=== PATIENT | female | born 1995 | race Caucasian/White ===

== ENCOUNTER 2020-06-11 09:28 | Inpatient (IN) ==
--- OUTSIDE RECORDS SUMMARY | 2020-06-11 11:07 | External Medical Summary | Continuity of Care Document ---
:1995 Author Name Sofi Schwarz, Provider Address Unavailable Unavailable , Care Team Providers Name Role Phone Rosendo Trevino M.D. 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 2 8 Tablet Pack Refills: 0 lamoTRIgine 25 MG Oral Tablet; Take 1 tablet daily Refills: 0 Depo-Provera 150 MG/ML Intramuscular Suspension; USE DIRE CTED. Refills: 0 Iron 325 (65 Fe) MG Oral Tablet; TAKE 1 TABLET TWICE DAILY. Refills: 0 Calcium + D TABS; Take 1 tablet twice daily Refills: 0 Procedures Procedures not documented Immunizations Immunizations not documented Family History Mother Family history of Adopted child Status: Active Family history unknown (V49.89) (Z78.9) Status: Active Father Family history of Adopted child Status: Active Family history unknown (V49.89) (Z78.9) Status: Active Plan of Treatment Planned Observations Planned Goals not documented Results No Known Results Results not documented Encounters Appointment; Rosendo Trevino M.D. 14-Oct-2018 9:30 Encounter Diagnosis: Problem not documented
[2020-06-11] MEDS ORDERED: OXYTOCIN 30 UNITS/500 ML BAG IV PRN ×3 (11:51→19:15)
--- NOTE | 2020-06-11 12:21 | Obstetrical Progress Note ---
Date of Service June 11, 2020 Assessment & Plan Admission and Anticipated Discharge Date Admission Date: June 11, 2020 Physical Exam Physical Exam: Admit Note 25 F P1001 at 41 weeks admitted for induction of labor for post-dates. Covid is negative. GBS is negative. FHT Cat 1. Cervix is 4/70/- 2/vertex/intact/anterior/soft. EFW 7 lbs. Anticipate normal delivery. Results & Data ([facility]) Vital Signs (Past 12 Hours) Vital Signs Temp Pulse Resp BP 06/11/20 11:18 37.1 C 68 20 127/76
[2020-06-11 12:22] LABS: Hematocrit (blood only) 32.5 % (37-47); Hemoglobin 10.9 g/dL (12.0-16.0); Mean Corpuscular Hemoglobin 31.6 pg (25-34); Mean Corpuscular Volume 94.2 fL (80-100); Mean Platelet Volume 11.7 fL (7.4-10.4); Platelet Count 226 K/uL (130-400); RDW Coefficient of Variation 14.1 % (11.5-14.5); RDW Standard Deviation 48.7 fL (36.4-46.3); Red Blood Count 3.45 M/uL (4.2-5.4); White Blood Count 8.66 K/uL (4.8-10.8)
[2020-06-11 12:35] LABS: Mean Corpuscular Hgb Conc 33.5 g/dL (32-36)
[2020-06-11] MEDS: LACTATED RINGER'S 1,000 ML IV PRN ×2 (13:42→17:27)
--- NOTE | 2020-06-11 15:31 | Obstetrical Progress Note ---
Date of Service June 11, 2020 Assessment & Plan Admission and Anticipated Discharge Date Admission Date: June 11, 2020 Physical Exam Genitourinary: Manual OB Exam: + cervical dilation 5 cm, + cervical effacement 80%, + station -2 and + amniotic fluid clear OB Exam Monitor Tracing: + external FHT monitor used, + external uterine monitor used and + category I Results & Data ([facility]) Vital Signs (Past 12 Hours) Vital Signs Temp Pulse Resp BP 06/11/20 15:26 73 121/67 06/11/20 14:50 36.6 C 88 18 120/64 06/11/20 13:41 36.8 C 56 L 20 119/71 06/11/20 11:18 37.1 C 68 20 127/76
[2020-06-11] MEDS ORDERED: BUPIVACAINE 0.25% 30 ML VIAL ONE (16:54)
[2020-06-11] MEDS ORDERED: ePHEDrine sulfate 50 MG/ML AMP ONE (16:54)
[2020-06-11] MEDS ORDERED: fentaNYL 2MCG/ML ROPIV 1.25MG/ML 100 ML BAG EPI ONE (16:55)
[2020-06-11] MEDS ORDERED: fentaNYL citrate 100 MCG/2 ML VIAL ONE (16:55)
--- NOTE | 2020-06-11 17:57 | Anesthesiology Consultation ---
Date of Service June 11, 2020 Assessment & Plan (1) Encounter for pre-operative examination: Chart Review Chart Review: Acceptable Risk for Surgery Consults Requested none ASA ASA2 Proposed Anesthesia Anesthesia Type: Labor Epidural Risk / Benefits Reviewed With: PT / POA / Parent / Guardian, Accepts Plan and Informed Consent Obtained History Height/Weight Height: 5 ft 3 in Weight: 63.049 kg Allergies Allergy/AdvReac Type Severity Reaction Status Date / Time shellfish derived Allergy Anaphylaxis Verified 06/11/20 10:38 Medications Home Medications Medication Instructions Recorded Confirmed Last Taken ferrous sulfate 325 mg PO DAILY 06/11/20 06/11/20 06/10/20 20:00 prenat.vits,cliff,bke-jkbw-unagh 1 tab PO DAILY 06/11/20 06/11/20 06/10/20 20:00 [ Vitamin] Active Medications Generic Name Dose Route Start Last Admin Trade Name Freq PRN Reason Stop Dose Admin Lactated Ringer's 1,000 mls @ 125 mls/hr 06/11/20 11:51 06/11/20 17:27 Lr IV 06/13/20 11:50 999 mls/hr .Q8H PRN Administration L&D Protocol Protocol Oxytocin 30 units in 500 mls @ 12 mls/hr 06/11/20 12:17 06/11/20 17:00 Pitocin IV 06/13/20 12:16 0.72 units/hr .Q24H PRN 12 mls/hr Labor Induction/Augmentation Titration Protocol 0.72 UNITS/HR NPO Date Last Intake of Fluids: 06/11/20 Time Last Intake of Fluids: 17:30 Date Last Intake of Solids: 06/11/20 Time Last Intake of Solids: 06:00 Past Medical History Medical History Asthma (06/03/12) Migraine (11/27/12) Reflux (06/03/12) Exercise / Class Metabolic Activity II 4-5 Yardwork/Stairs/Walk up hill Past Surgical History Surgical History No significant past surgical history Past Anesthesia History No Family Hx of Anesthesia Complications History of PONV No Hx of Motion Sickness Social History Smoking Status: Never smoker Do You Dip or Chew Tobacco: No Hx Alcohol Use: No Hx Substance Use: No Review of Systems Patient denies history of abnormal bleeding or bleeding disorder. Patient denies active use of anticoagulants other than low dose aspirin. Patient denies numbness, tingling or weakness in lower extremities. Physical Exam Vital Signs Last Vital Signs Temp 36.6 C 06/11/20 14:50 Pulse 75 06/11/20 17:26 Resp 18 06/11/20 14:50 BP 123/74 06/11/20 17:10 Pulse Ox 100 06/11/20 17:26 Constitutional not obese (gravid uterus) ENMT Mouth: no TMJ abnormality and oral opening not small Thyromental Distance: > or= 3.5 Finger Breadths Mallampati Class: II Neck normal visual inspection; neck extension not limited Respiratory normal respiratory effort Auscultation: lungs clear to auscultation bilaterally Cardiovascular Rate/Rhythm: regular rate and regular rhythm Heart Sounds: no murmur Neurologic moves all extremities Motor/Sensory: no sensory deficit Psychiatric Orientation: alert and oriented x 3 Testing Laboratory Results 06/11/20 12:00
[2020-06-11] MEDS ORDERED: NALOXONE HCL 1 MG in SODIUM CHLORIDE 0.9% 1000ML 1,000 ML IV PRN (18:03)
[2020-06-11] MEDS ORDERED: DiphenhydrAMINE HCL 50 MG/ML VIAL IV PRN (18:03)
[2020-06-11] MEDS ORDERED: NALOXONE HCL 0.4 MG/1 ML VIAL/CARP IV PRN (18:03)
[2020-06-11] MEDS ORDERED: ONDANSETRON INJ 2 MG/ML 2 ML VIAL IV PRN (18:03)
[2020-06-11] MEDS ORDERED: fentaNYL 2MCG/ML ROPIV 1.25MG/ML 100 ML BAG EPI PRN (18:03)
[2020-06-11] MEDS ORDERED: ePHEDrine sulfate 50 MG/ML AMP IV PRN (18:03)
--- NOTE | 2020-06-11 18:38 | Delivery Summary ---
Vaginal Delivery Summary Date of Service June 11, 2020 Vaginal Delivery Summary Delivery Note live female over intact perineum with delayed cord clamping with Apgars 9/10 weight pending. Cord blood obtained followed by spontaneous delivery of intact placenta. Small first degree tear noted in vagina repaired with 3/0 Vicryl suture. EBL 200 ml. final sponge and instrument count are correct. Mom and baby stable.
[2020-06-11] MEDS ORDERED: HYDROCORTISONE ACETATE 25 MG SUPP PR PRN (19:15)
[2020-06-11] MEDS ORDERED: SUPERCREAM 0.870% 15 GM JAR EXT PRN (19:15)
[2020-06-11] MEDS ORDERED: bisacodyL 10 MG SUPP PR PRN (19:15)
[2020-06-11] MEDS ORDERED: DIPHTHERIA/TETANUS/PERTUSSIS 0.5 ML SYR/VIAL IM ONE (19:15)
[2020-06-11] MEDS ORDERED: IBUPROFEN 600 MG TAB PO PRN (19:15)
[2020-06-11] MEDS ORDERED: ACETAMINOPHEN 325 MG TAB PO PRN (19:15)
[2020-06-11] MEDS ORDERED: BENZOCAINE 20% AER SPR 82.5 GM CAN EXT PRN (19:15)
--- NOTE | 2020-06-11 20:21 | Anesthesia Procedure Note ---
Date of Service June 11, 2020 Anesthesia Post Epidural Note Vital Signs Vital Signs: Temp Pulse Resp BP Pulse Ox 36.8 C 76 18 109/59 L 100 06/11/20 20:00 06/11/20 20:07 06/11/20 20:00 06/11/20 20:07 06/11/20 18:51 Notes Mental Status: alert / awake / arousable and participated in evaluation Nausea / Vomiting: adequately controlled Pain: adequately controlled Airway Patency, RR, SpO2: stable & adequate BP & HR: stable & adequate Hydration State: stable & adequate Neuraxial Anesthesia: was administered and sensory block is resolving Anesthetic Complications: no major complications apparent and Pt Satisfied with anesthetic care Epidural: Removed without complications and With tip intact Notes: Epidural site clean, dry and intact. No signs of edema, erythema or bruising at insertion site. Pt instructed to request anesthesia if she has residual lower extremity numbness or if she develops lower extremity pain or weakness, back pain or headache.
[2020-06-11] MEDS: DOCUSATE SODIUM 100 MG CAP PO SCH (21:20)
[2020-06-12 05:55] LABS: Hematocrit (blood only) 30.5 % (37-47); Hemoglobin 10.2 g/dL (12.0-16.0); Mean Corpuscular Hemoglobin 31.2 pg (25-34); Mean Corpuscular Hgb Conc 33.4 g/dL (32-36); Mean Corpuscular Volume 93.3 fL (80-100); Mean Platelet Volume 11.8 fL (7.4-10.4); Platelet Count 219 K/uL (130-400); RDW Coefficient of Variation 14.1 % (11.5-14.5); RDW Standard Deviation 48.5 fL (36.4-46.3); Red Blood Count 3.27 M/uL (4.2-5.4); White Blood Count 12.28 K/uL (4.8-10.8)
[2020-06-12] MEDS ORDERED: PRENATAL VITAMIN 1 TAB PO SCH (08:00)
[2020-06-12] MEDS ORDERED: FERROUS SULFATE 325 MG TAB PO SCH (08:00)
[2020-06-12] MEDS: DOCUSATE SODIUM 100 MG CAP PO SCH (08:03)
[2020-06-12] MEDS ORDERED: NON-FORMULARY MEDICATION (Prenat.Vits,Cal,Min-Iron-Folic 1 TAB) PO SCH (09:00)
[2020-06-12] MEDS ORDERED: NON-FORMULARY MEDICATION (Ferrous Sulfate 325 MG) PO SCH (09:00)
--- NOTE | 2020-06-12 09:55 | Obstetrical Progress Note ---
Date of Service June 12, 2020 Assessment & Plan Admission and Anticipated Discharge Date Admission Date: June 11, 2020 Physical Exam Physical Exam: ambulating well no calf tenderness abdomen soft and non tender vaginal bleeding scant hgb 10.2 Results & Data ([facility]) Vital Signs (Past 12 Hours) Vital Signs Temp Pulse Resp BP BP Pulse Ox 06/12/20 07:54 36.9 C 57 L 18 123/76 98 06/12/20 04:35 36.8 C 57 L 17 109/68 97 06/11/20 23:05 36.8 C 56 L 16 114/68 96
[2020-06-12] MEDS ORDERED: bisacodyL 5 MG TABEC PO SCH (20:00)
== END 2020-06-12 18:15 | disposition home or self-care (01) | DRG 807 ==
LOC: 4S1 11:04 → 4S2 21:11

== ENCOUNTER 2022-01-19 08:50 | Inpatient (IN) ==
[2022-01-19] MEDS ORDERED: OXYTOCIN 30 UNITS/500ML NSS ONE (09:07)
[2022-01-19] MEDS ORDERED: OXYTOCIN 30 UNITS/500 ML BAG IV PRN ×2 (09:09→10:17)
[2022-01-19] MEDS ORDERED: LACTATED RINGER'S 1,000 ML IV PRN (09:09)
[2022-01-19 09:38] LABS: Hematocrit (blood only) 32.8 % (37-47); Hemoglobin 10.8 g/dL (12.0-16.0); Mean Corpuscular Hgb Conc 32.9 g/dL (32-36); Mean Corpuscular Volume 91.1 fL (80-100); Mean Platelet Volume 11.9 fL (7.4-10.4); Platelet Count 347 K/uL (130-400); RDW Coefficient of Variation 13.2 % (11.5-14.5); RDW Standard Deviation 43.9 fL (36.4-46.3); White Blood Count 20.53 K/uL (4.8-10.8)
[2022-01-19] MEDS ORDERED: MINERAL OIL 30 ML UDC ONE (09:52)
[2022-01-19] MEDS ORDERED: LIDOCAINE 1% LOCAL 20 ML VIAL ONE (09:58)
[2022-01-19] MEDS ORDERED: BENZOCAINE 20% AER SPR 82.5 GM CAN EXT PRN (10:17)
[2022-01-19] MEDS ORDERED: bisacodyL 10 MG SUPP PR PRN (10:17)
[2022-01-19] MEDS ORDERED: ACETAMINOPHEN 325 MG TAB PO PRN (10:17)
[2022-01-19] MEDS ORDERED: IBUPROFEN 600 MG TAB PO PRN (10:17)
[2022-01-19] MEDS ORDERED: oxyCODONE/ACETAMINOPHEN 5mg/325mg TAB PO PRN (10:17)
[2022-01-19] MEDS ORDERED: DIPHTHERIA/TETANUS/PERTUSSIS 0.5 ML SYR/VIAL IM ONE (10:17)
[2022-01-19] MEDS ORDERED: HYDROCORTISONE ACETATE 25 MG SUPP PR PRN (10:17)
[2022-01-19] MEDS ORDERED: MEASLES, MUMPS & RUBELLA VIRUS VIAL SQ ONE (10:17)
--- NOTE | 2022-01-19 10:29 | Delivery Summary ---
Vaginal Delivery Summary Date of Service January 19, 2022 Vaginal Delivery Summary Patient is a 26-year-old -0-0-2 female at 39.1 wks with EDC of 4/24 per her. She presented to labor and delivery with contractions and in active labor. She took care from [facility] in [place] and was planning to deliver in [facility]. She thought she did not have time to drive to [place] and she presented to here at [facility] which is closer to her home. We did not have her records. She denied any problems during this . She has a history of mild asthma and uses inhaler as needed. She denies any history of surgery other than dental implants. She takes iron only. She denies any allergies to medications. She denies any history of STDs including chlamydia gonorrhea herpes. She reported her contractions started around midnight and they got closer and more painful after 3 AM. She denied leakage of fluid or vaginal bleeding. She reported good movements. She denied any symptoms of COVID. When she arrived to labor and delivery her cervix was anterior lip , 9. 5 CM, 90% effaced, with large bulging bag and head was at 0 station. She has not had CBC yet. We discussed about epidural versus AROM and quick delivery. Declined epidural and one third AROM and delivery. The fluid was clear. Soon after that she reached fully dilatation and head was at +1 station. She pushed through few contractions and delivered the head in direct occiput posterior position. The shoulders were delivered with minimal traction and then the baby was handed off to the mother where mouth and nose were suctioned and cord was clamped x2 and cut at 1 minute delay. Baby is moving and crying at that point. The vagina and perineum were checked for lacerations. There was only a small first-degree laceration at the posterior fourchette. Rest of the vagina and labia were intact. It was infiltrated with 1% lidocaine for local anesthesia. And it was repaired with 3-0 Vicryl with [id number] stitches. Excellent hemostasis achieved. Then the placenta was found to be in the vagina, delivered spontaneously as intact and complete . The uterus was explored and found to be empty. The lower Segment was cleared of all clots and debris, EBL was 300 mL. The fundus was firm and the bleeding was minimal after. The mom and baby tolerated procedure well. The sponge needle instrument count was correct x2. There was a viable female infant Apgars 8/9 and weight is pending. Not complications happened and I was present during whole procedure.
[2022-01-19] MEDS: DOCUSATE SODIUM 100 MG CAP PO SCH (21:43)
[2022-01-20 06:54] LABS: Basophils # (auto) 0.04 K/uL (0-0.2); Basophils % (auto) 0.2 %; Eosinophils # (auto) 0.03 K/uL (0-0.5); Eosinophils % (auto) 0.2 %; Hematocrit (blood only) 27.9 % (37-47); Hemoglobin 9.2 g/dL (12.0-16.0); Immature Granulocytes % (auto) 0.6 %; Lymphocytes # (auto) 2.63 K/uL (1.2-3.4); Mean Corpuscular Hemoglobin 29.8 pg (25-34); Mean Corpuscular Volume 90.3 fL (80-100); Monocytes # (auto) 1.31 K/uL (0.11-0.59); Monocytes % (auto) 7.9 %; Neutrophils # (auto) 12.37 K/uL (1.4-6.5); Neutrophils % (auto) 75.1 %; Platelet Count 301 K/uL (130-400); RDW Coefficient of Variation 13.3 % (11.5-14.5); RDW Standard Deviation 43.6 fL (36.4-46.3); Red Blood Count 3.09 M/uL (4.2-5.4); White Blood Count 16.48 K/uL (4.8-10.8)
[2022-01-20] MEDS: DOCUSATE SODIUM 100 MG CAP PO SCH (07:55)
[2022-01-20] MEDS ORDERED: FERROUS SULFATE 325 MG TAB PO SCH (08:00)
[2022-01-20] MEDS ORDERED: PRENATAL VITAMIN 1 TAB PO SCH (08:00)
--- NOTE | 2022-01-20 10:20 | Obstetrical Progress Note ---
Date of Service January 20, 2022 Assessment & Plan (1) , delivered: discharged Subjective Ambulation: ambulating normally Voiding: no voiding problems Passing Gas:: Yes Diet Tolerance:: regular diet Lochia:: Small Feeding Type:: breast feeding Current Pain Level(1-10): 0 plans for d/c today Physical Exam Constitutional WD/WN, vitals as above Gastrointestinal (Abdomen) abdomen soft and non-tender fundus firm Skin no rashes, warm and dry no edema neg Romeo's Results & Data ([facility]) Vital Signs (Past 12 Hours) Vital Signs Temp Pulse Resp BP Pulse Ox 01/20/22 07:41 36.5 C 59 L 16 115/72 100 01/20/22 04:19 36.8 C 78 20 108/72 97 01/20/22 02:26 36.6 C 74 18 97 Laboratory Results Laboratory Results - last 72 hr 01/19/22 01/19/22 01/20/22 09:23 Unknown 06:13 WBC 20.53 H 16.48 H RBC 3.60 L 3.09 L Hgb 10.8 L 9.2 L Hct 32.8 L 27.9 L MCV 91.1 90.3 MCH 30.0 29.8 MCHC 32.9 33.0 RDW Std Deviation 43.9 43.6 RDW Coeff of Rachel 13.2 13.3 Plt Count 347 301 MPV 11.9 H 12.0 H Immature Gran % (Auto) 0.6 Neut % (Auto) 75.1 Lymph % (Auto) 16.0 Baxter % (Auto) 7.9 Eos % (Auto) 0.2 Baso % (Auto) 0.2 Neut # (Auto) 12.37 H Lymph # (Auto) 2.63 Baxter # (Auto) 1.31 H Eos # (Auto) 0.03 Baso # (Auto) 0.04 Immature Gran # (Auto) 0.10 H SARS-CoV-2, RNA, NAAT NEGATIVE
[2022-01-20] MEDS ORDERED: bisacodyL 5 MG TABEC PO SCH (20:00)
== END 2022-01-20 12:07 | disposition home or self-care (01) | DRG 807 ==
LOC: OPB 08:50 → 4S1 08:51 → 4E2 13:10